=== PATIENT | male | born 1950 | race Caucasian/White ===

== ENCOUNTER 2018-07-18 09:10 | Day surgery (SDC) | payer MEDICARE, OTHER ==
[2018-05-08 14:00] VITALS: BMI 34.1
[2018-07-18 10:05] VITALS: TEMP 98.1; O2SAT 96
[2018-07-18] MEDS ORDERED: Benzocaine/Butamben/Tetracai 14-2-2% TOP Spray TOP ONE (10:43)
[2018-07-18] MEDS ORDERED: Flumazenil 0.1 mg/ml Inj (5ml) IVP ONE (11:13)
[2018-07-18] MEDS ORDERED: Midazolam 2 MG/2 ML VIAL ONE (11:13)
[2018-07-18] MEDS ORDERED: Naloxone 0.4 mg/ml Inj (Adult) ONE (11:13)
[2018-07-18] MEDS ORDERED: Midazolam 2 MG/2 ML VIAL IV ONE ×3 (11:15→11:23)
[2018-07-18] MEDS ORDERED: Sodium Chloride 0.9% 1,000 ML IV SCH (12:00)
[2018-07-18 12:43] VITALS: RESP 18
[2018-07-18 14:43] VITALS: BP 139/72; PULSE 89
--- NOTE | 2018-07-18 18:40 | CARD ---
APPROVED REPORT Date of service: 07/18/2018 EXAM: Transesophageal echocardiogram with color flow Doppler. INDICATION Aortic Valve Disease 2D DIMENSIONS LVOT Diameter2.0 (1.8-2.4cm) M-Mode DIMENSIONS Aortic Cusp Exc.0.90 (1.5-2.0cm) Aortic Valve AoV Peak Ncxfdlvj834.0cm/sAoV VTI39.9cmAO Peak GR.28mmHg LVOT Peak Vcgmisrc274.0cm/sLVOT VTI27.00cmAO Mean GR.12mmHg QASIM (VMAX)1.67kl7TGV (VTI)2.12cm2 Mitral Valve E/A ratio0.0 TDI E/Lateral E'0.0E/Medial E'0.0 Reason For Test : To assess severity PROCEDURE After obtaining informed consent, patient underwent transesophageal echo in the Echo Lab. Type of Sedation : Conscious Sedation Sedation was administered by erika Coughlin. Sedation was achieved with Versed and fentanyl 3 mg and 100 mcg intravenously. Transesophageal probe was inserted and advanced into esophagus without difficulty. Echo enhancement indication: R/O Septal defect. Echo enhancement agent administered: Agitated Saline The [place] was performed without complications. Throughout the procedure, the blood pressure, pulse oximetry, cardiac rhythm, and rate were monitored. The patient tolerated the procedure without adverse effects. Recovery from conscious sedation was uneventful and vital signs were stable. LEFT VENTRICLE The left ventricle is normal size. There is mild concentric left ventricular hypertrophy. The left ventricular function is normal.EF-60-65% There is normal LV segmental wall motion. No left ventricle thrombus noted on this study. There is no ventricular septal defect visualized. There is no left ventricular aneurysm. There is no mass noted in the left ventricle. RIGHT VENTRICLE The right ventricle is normal size. There is normal right ventricular wall thickness. The right ventricular systolic function is normal. ATRIA The left atrium is mildly dilated. The right atrium is mildly dilated. intermittent PFO with left to Right Shunt by color Flow, but not by bubble study. AORTIC VALVE The aortic valve is moderately calcified. There is mild aortic regurgitation. There is mild to moderate valvular aortic stenosis. QASIM by planimetry 1.5 cm2 and by continuity 1.85 with peak gradient 28 mm of Hg. There is no aortic valvular vegetation. MITRAL VALVE Mitral annular calcification is mild. The mitral valve leaflets are thickened. There is no evidence of mitral valve prolapse. There is no mitral valve stenosis. Mitral regurgitation is mild to moderate. TRICUSPID VALVE The tricuspid valve leaflets display thickening. There is mild tricuspid regurgitation. There is no tricuspid valve prolapse or vegetation. There is no tricuspid valve stenosis. PULMONIC VALVE The pulmonary valve is normal in structure. There is tracetrace pulmonic valvular regurgitation. There is no pulmonic valvular stenosis. GREAT VESSELS The aortic root is normal in size. The ascending aorta is normal in size. The pulmonary artery is normal. The IVC is normal in size and collapses >50% with inspiration. PERICARDIAL EFFUSION There is no pericardial effusion. There is no pleural effusion. <Conclusion> The left ventricle is normal size. There is mild concentric left ventricular hypertrophy. There is mild aortic regurgitation. Mitral regurgitation is mild to moderate. There is mild tricuspid regurgitation. The IVC is normal in size and collapses >50% with inspiration. There is no pericardial effusion. There is mild to moderate valvular aortic stenosis. QASIM by planimetry 1.5 cm2 and by continuity 1.85 with peak gradient 28 mm of Hg. Cc; Nhung Ozuna MD
--- NOTE | 2018-07-19 09:10 | CARD ---
APPROVED REPORT Date of service: 07/18/2018 EKG Measurement Heart [id number] VT [id number] <Conclusion> Normal sinus rhythm Moderate voltage criteria for LVH, may be normal variant Borderline ECG
== END 2018-07-18 14:00 | disposition home or self-care (01) ==
LOC: TEE 09:10
PROVIDERS: ATTEND Internal Medicine Cardiovascular Disease
DX: I48.91 Unspecified atrial fibrillation (principal); I10 Essential (primary) hypertension; I08.0 Rheumatic disorders of both mitral and aortic valves
CPT/HCPCS: 93312; J2250; J3010; J7030